=== PATIENT | male | born 1965 | race Caucasian/White ===

== ENCOUNTER 2016-08-04 05:00 | Day surgery (SDC) | payer BC ==
[~2016-08-04 05:00] MED LIST: COZ50 PO; IBU-200200 MG PO; LEVOTHYROXIN200 MCG PO; LEVOTHYROXIN25 MCG PO; LORTAB 5 PO; MEDROLPAK4 PO; MONO20 PO; MULTIPLE VIT PO; NORCO1 TAB PO; NORV10 PO; PCET PO; PEPCID40 MG PO; PRAVAC PO; PRAVACHOL40 MG PO; PRILO PO; QUESTRAN4 GM PO; THERAPEUTIC PO; ULTRAM50 PO; VOLTXR100 PO; ZYRTEC ALLGY10 MG PO
[2016-11-02] MEDS ORDERED: IBU800 PO (09:54)
== END 2016-08-04 13:27 | disposition home or self-care (01) ==
LOC: SDC 05:00
PROVIDERS: Orthopaedic Surgery
PROC: 3E0S3BZ Introduction of Anesthetic Agent into Epidural Space, Percutaneous Approach (ICD-10-PCS; 2016-08-04)
PROC: 3E0S33Z Introduction of Anti-inflammatory into Epidural Space, Percutaneous Approach (ICD-10-PCS; principal; 2016-08-04 08:15)
DX: M54.17 Radiculopathy, lumbosacral region (principal); M54.13 Radiculopathy, cervicothoracic region; E78.00 Pure hypercholesterolemia, unspecified; I10 Essential (primary) hypertension; K21.9 Gastro-esophageal reflux disease without esophagitis; E89.0 Postprocedural hypothyroidism; Z79.891 Long term (current) use of opiate analgesic; Z79.899 Other long term (current) drug therapy; Z90.89 Acquired absence of other organs; Z98.1 Arthrodesis status; Z98.890 Other specified postprocedural states; Z90.49 Acquired absence of other specified parts of digestive tract
CPT/HCPCS: J1040; J2250; J3010; Q9967

== ENCOUNTER 2016-11-06 05:14 | Day surgery (SDC) | payer BC ==
[~2016-11-06 05:14] MED LIST changes: +IBU800 PO
== END 2016-11-06 11:04 | disposition home or self-care (01) ==
LOC: SDC 05:14
PROVIDERS: Orthopaedic Surgery
PROC: 3E0R3BZ Introduction of Anesthetic Agent into Spinal Canal, Percutaneous Approach (ICD-10-PCS; 2016-11-06)
PROC: B01BZZZ Fluoroscopy of Spinal Cord (ICD-10-PCS; 2016-11-06)
PROC: 3E0R3BZ Introduction of Anesthetic Agent into Spinal Canal, Percutaneous Approach (ICD-10-PCS; principal; 2016-11-06 08:15)
PROC: B01BZZZ Fluoroscopy of Spinal Cord (ICD-10-PCS; 2016-11-06 08:15)
DX: M54.17 Radiculopathy, lumbosacral region (principal); M54.13 Radiculopathy, cervicothoracic region; E03.9 Hypothyroidism, unspecified; K21.9 Gastro-esophageal reflux disease without esophagitis; I10 Essential (primary) hypertension; E78.00 Pure hypercholesterolemia, unspecified; Z90.49 Acquired absence of other specified parts of digestive tract; Z79.899 Other long term (current) drug therapy; Z98.890 Other specified postprocedural states
CPT/HCPCS: J1040; J2250; J3010; Q9967